=== PATIENT | female | born 1960 | race Caucasian/White ===

== ENCOUNTER 2025-01-04 09:17 | Emergency (ER) | payer MEDICAID, SELFPAY ==
[2025-01-04] VITALS (22 sets, daily range): BP systolic 106–132; BP diastolic 60–87; PULSE 60–77; RESP 16–23; TEMP 36.7–37.1; O2SAT 87–97; BMI 25.0
--- NOTE | 2025-01-04 09:21 | ED_ITS ---
Discharge Plan Disposition Patient Disposition: Xfer [facility] Prescriptions Prescriptions: New buprenorphine-naloxone [Suboxone] 8-2 mg film 1.5 film buccal DAILY 7 Days Qty: 11 0RF Referrals Follow up/Referrals: Provider,Referral, [Primary Care Provider] - See instructions Clinical Impressions Clinical Impression: Opioid use disorder Print Language Print Language: Greek Discharge ED Provider: Joan Andrews HPI General Chief Complaint: Shortness of Breath/Dyspnea Stated Complaint: SOA Time Seen by Provider: 01/04/25 09:22 History of Present Illness HPI narrative: Patient is a 64-year-old with past medical history significant for opioid use disorder COPD, end-stage for later nasal cannula requirement at baseline and schizophrenia who presents to the emergency department for dose of Suboxone. Patient was discharged yesterday from [facility] where she was inpatient psychiatric treatment for 3 weeks on 12 mg of Suboxone daily. She was discharged to [facility] yesterday and was seen by nurse practitioner this morning demanding her Suboxone. Patient has not had Suboxone since discharge from [facility] 2 days ago. Patient says that she is starting to feel little shaky since she has not had her Suboxone today. Denies chest pain shortness of breath cough congestion fever. Patient is on 4 L nasal cannula at her baseline. Related Data Previous Rx's ?Medication ?Instructions ?Recorded buprenorphine 8 mg-naloxone 2 mg 1.5 film buccal DAILY 7 days #11 ea 01/04/25 sublingual film (Suboxone) Allergies Allergy/AdvReac Type Severity Reaction Status Date / Time No Known Allergies Allergy Verified 01/04/25 09:31 [facility] Disclaimer: The information contained in this section may have been updated after the patient was seen, as this information can be updated by other users. Social History Smoking Status: Current every day smoker alcohol intake: never current occupational status: unemployed Travel in the last 8 weeks: None ROS Obtained: Yes All systems reviewed & no additional complaints except as documented Physical Exam General General appearance: alert and in no apparent distress ENT ENT exam: Present normal oropharynx Neck Neck exam: Present normal inspection; Absent tenderness Respiratory Respiratory exam: Present wheezes (Wheezing bilaterally) Cardiovascular Cardiovascular exam: Present regular rate and normal rhythm Abdominal Exam Abdominal exam: Present soft; Absent tenderness Neurological Exam Neurological exam: Present alert and oriented X3 Psychiatric Psychiatric exam: Present agitated Skin Skin exam: Present warm and dry; Absent diaphoresis HEART Score HEART Score HEART Score assessment performed?: No Critical Care Critical Care Time Critical Care Time: No Medical Decision Making Josse Inquiry Pt receiving controlled substance: Yes Josse was queried for this patient: Yes Risks and benefits of using a controlled substance: were discussed with pt by me Vital Signs Vital Signs: 01/04/25 09:20 01/04/25 09:30 01/04/25 10:00 Temperature 98.7 F Temperature Source Oral Pulse Rate 76 71 Pulse Rate [Right Apical] 77 Respiratory Rate 20 23 20 Blood Pressure 120/87 126/71 Blood Pressure [Right Arm] 132/87 Blood Pressure Mean [Right Arm] 102 Blood Pressure Source [Right Arm] Automatic Cuff Blood Pressure Position [Right Arm] Supine 02 Sat by Pulse Oximetry 94 L 95 94 L Oxygen Delivery Method Nasal Cannula Oxygen Flow Rate (LPM) 4 01/04/25 10:30 Temperature Temperature Source Pulse Rate 67 Pulse Rate [Right Apical] Respiratory Rate 19 Blood Pressure 111/64 Blood Pressure [Right Arm] Blood Pressure Mean [Right Arm] Blood Pressure Source [Right Arm] Blood Pressure Position [Right Arm] 02 Sat by Pulse Oximetry 94 L Oxygen Delivery Method Oxygen Flow Rate (LPM) Response Orders (Tests/Meds): ED MEDICATIONS Generic Name Dose Route Start Last Admin Trade Name Freq PRN Reason Stop Dose Admin Buprenorphine/Naloxone 1.5 each 01/04/25 11:47 Buprenorphine/Naloxone 8mg/2mg Odt SL 01/04/25 11:48 ONCE ONE MDM Narrative Medical Decision Narrative: In summary, this 64-year-old female presents to the emergency department today with request for Suboxone. On initial evaluation patient is hemodynamically stable saturating appropriately on baseline 4 L nasal cannula. COWS score 2 notable for anxiety and feeling tremulous without observation. Josse pulled with last prescription for Suboxone written on 125. Patient has been inpatient at [facility] for 3 weeks. Records reviewed from [facility] and confirmed patient was receiving 12 mg of Suboxone daily. Patient was given 1 dose of 12 mg of Suboxone. We had an interactive conversation with Tim. patient has an appointment on 01/08 with a provider that can provide Suboxone refill. Patient given a 1 week prescription for her daily 12 mg of Suboxone until she is able to follow-up with this provider.
--- NOTE | 2025-01-04 09:45 | PC.NURSE ---
Called [facility] for medical records for details of patient's previous admission. Per Dr. Andrews the patient's Josse is negative for suboxone. spoke with Gerry who stated she would fax over the information
--- NOTE | 2025-01-04 10:47 | PC.NURSE ---
Called [facility] back and asked to speak with medical records to see about getting information faxed over on this pt.
--- NOTE | 2025-01-04 11:05 | PC.NURSE ---
received pt pharmacy record from [facility] but not the MD progress notes or discharge summary. Caller Gerry sauceda whop stated she would send over the progress notes and the discharge packet but that the provider summary wasnt completed yet
--- NOTE | 2025-01-04 11:45 | PC.NURSE ---
[facility] sent more pt records including the pt discharge packet which confirmed she was taking the suboxone
--- NOTE | 2025-01-04 12:00 | PC.NURSE ---
pt reports she wears 4L NC at home at all times. pt oxygen turned off at this time for room air sat to evaluate oxygen requirement
[2025-01-04] MEDS: BUPRENORPHINE/NALOXONE 8MG/2MG ODT 1.5 EACH SL (12:24)
--- NOTE | 2025-01-04 12:26 | PC.NURSE ---
called report back to [facility]. They reported someone would be over shortly to pick her up
--- NOTE | 2025-01-04 12:30 | PC.NURSE ---
Pt ambulated from room to outside of ambulance bay. approx 200 feet. pt wanted to smoke but was redirected at this time. pt assted back to room and was noted to be SOB. room air O2 sat is 87% at this time. 4L NC applied and pt recovered to 96%. pt reports she usually wears 4L NC at home
--- NOTE | 2025-01-04 13:30 | PC.NURSE ---
Rosio Ron with care management at bedside
--- NOTE | 2025-01-04 14:07 | SW/DCPLANNER ---
Patient currently resides at [facility]. I did call and spoke w/ Doris at [facility] whom did not have much info regarding patient due to being a new admit yesterday. Doris stated [facility] did not receive medication prescriptions. Per requested documentation from [facility] (discharged yesterday) patient does require home O2. PRN O2 will be set up by Shawnee Sanchez (PCP) at [facility]. Patient will discharge from ED w/ PRN O2 and Suboxone medication. I have updated Doris w/ [facility].
--- NOTE | 2025-01-04 14:14 | PC.NURSE ---
spoke with provider Brandy Sanchez who agreed to write the order for oxygen as needed so pt can return to the facility. Dr. Andrews notified
--- NOTE | 2025-01-04 15:25 | PC.NURSE ---
rounded on pt and 02 sat was 87% at rest laying in the bed and went in and put pt back on 2 liters and 02 sat increased to 94%.
--- NOTE | 2025-01-04 15:30 | PC.NURSE ---
unable to get O2 order from AIDE Sanchez. Dr. Weller wrote order. Case Management aware. required info faxed to [facility]. called [facility] for confirmation. They will bring portable O2 for transport and pick it back up at [place] next week
--- NOTE | 2025-01-04 16:03 | PC.NURSE ---
[facility] delivered portable o2. Called [facility] to notify them that pt ready for d/c now.
--- NOTE | 2025-01-04 16:45 | PC.NURSE ---
Called Tim again to come and get there pt. No answer
--- NOTE | 2025-01-04 16:48 | PC.NURSE ---
[facility] should be arriving any minute to pick this pt up
--- NOTE | 2025-01-04 18:02 | PC.NURSE ---
called lab to check on ETOH results. They stated the result didnt cross over from the analyzer said it would need to be redone and would take about 15 minutes
== END 2025-01-04 16:52 ==
PROVIDERS: Emergency Provider Student in an Organized Health Care Education/Training Program
DX: F11.90 Opioid use, unspecified, uncomplicated (principal); J44.9 Chronic obstructive pulmonary disease, unspecified; F20.9 Schizophrenia, unspecified; R25.1 Tremor, unspecified; Z72.0 Tobacco use
CPT/HCPCS: 99283; J0574

== ENCOUNTER 2025-01-12 14:24 | Emergency (ER) | payer OTHER, SELFPAY ==
[2025-01-12] VITALS (8 sets, daily range): BP systolic 135–184; BP diastolic 72–91; PULSE 65–71; RESP 15–26; TEMP 37.6; O2SAT 88–99; BMI 25.0
--- NOTE | 2025-01-12 14:29 | ECG_ITS ---
APPROVED REPORT Exam: Resting ECG HR:69 bpm ECG Measurements Heart Rate 69 AXES DE 123 P -76 QRSd 89 QRS 87 QT 442 T 84 QTc 461 Conclusion Sinus rhythm T wave inversions 1 and aVL with no reciprocal change Electronically signed by : RICHARDSON WILEY, 01/12/2025 23:06:54
[2025-01-12 14:32] LABS: Coronavirus 19, PCR Not Detected (NotDetected); Influenza A, PCR Not Detected (NotDetected); Influenza B, PCR Not Detected (NotDetected)
--- NOTE | 2025-01-12 14:38 | XR_ITS ---
PROCEDURE INFORMATION: Exam: XR Chest Exam date and time: 01/12/2025 2:50 PM Age: 64 years old Clinical indication: Shortness of breath; Additional info: SOA TECHNIQUE: Imaging protocol: Radiologic exam of the chest. Views: 1 view. COMPARISON: No relevant prior studies available. FINDINGS: Lungs: Right lower lung opacity, concerning for consolidation or atelectasis. Pleural spaces: No pleural effusion or pneumothorax. Heart/Mediastinum: The heart size is normal. Mild aortic atherosclerosis. Bones/joints: No acute fracture. Left humeral orthopedic hardware. Other findings: Dense irregularities along the mid lower neck. IMPRESSION: Right lower lung opacity, concerning for consolidation or atelectasis.
[2025-01-12] MEDS: IPRATROPIUM/ALBUTEROL 3 ML NEB 9 ML IH (14:55)
[2025-01-12] MEDS: METHYLPREDNISOLONE SOD SUCC 125MG VIAL 125 MG IV (14:58)
[2025-01-12 15:03] LABS: Lactate Venous 1.6 mmol/L (0.4-2.0); VBG HCO3 27.6 mmol/L (23-30); VBG Oxygen Saturation 75.8 % (50-70); VBG PH 7.35 mmol/L (7.31-7.41); VBG PO2 42.8 mmol/L (28-40); VBG Total CO2 29.1 mmol/L (23-27)
[2025-01-12 15:05] LABS: Basophils % 0.2 % (0.1-2.0); Eosinophils # 0.1 K/mm3 (0.0-0.4); Eosinophils % 1.4 % (0.1-12.0); Hematocrit 33.3 % (37.0-47.0); Hemoglobin 10.6 g/dL (12.2-16.2); Lymphocytes # 1.5 K/mm3 (0.7-4.5); Lymphocytes % 19.1 % (10-50); Mean Corpuscular HGB Conc 31.8 g/dL (31.8-35.4); Mean Corpuscular Hemoglobin 30.2 pg (27.0-31.2); Mean Corpuscular Volume 94.9 fl (81-99); Mean Platelet Volume 9.3 fl (7.4-10.4); Monocytes # 0.8 K/mm3 (0.1-1.0); Monocytes % 9.3 % (1.7-9.3); Neutrophils # 5.6 K/mm3 (1.8-7.8); Neutrophils % 69.8 % (37.0-80.0); Platelet Count 345 K/mm3 (142-424); Red Blood Count 3.51 M/mm3 (4.20-5.40); Red Cell Distribution Width 15.6 % (11.5-17.5)
[2025-01-12 15:06] LABS: VBG PCO2 50.7 mmol/L (35-51)
[2025-01-12 15:19] LABS: Alanine Aminotransferase 20 U/L (12-78); Albumin Level 3.5 g/dl (3.5-5.0); Alkaline Phosphatase 142 U/L (38-126); Anion Gap 10.9 mEq/L (5-15); Aspartate Amino Transferase 29 U/L (14-36); Bilirubin,Total 0.2 mg/dl (0.2-1.3); Blood Urea Nitrogen 11 mg/dl (7-17); Calcium 8.9 mg/dl (8.4-10.2); Carbon Dioxide 32 mmol/L (22.0-30.0); Chloride 103 mmol/L (98-107); Creatinine Clearance Estimated 63 mL/min (50-200); Estimated Glomerular Filt Rate 84 ml/min (>60); GFR (African American) 102 ML/MIN (>60); Globulin 3.4 g/dL (1.3-3.2); Glucose 109 mg/dl (74-100); Potassium 3.9 mmoL/L (3.5-5.1); Sodium 142 mmol/L (136-145); Total Protein,Serum 6.9 g/dl (6.3-8.2)
[2025-01-12 15:24] LABS: D-Dimer 0.37 ug/mL (0.0-0.5)
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
[2025-01-12 15:33] LABS: Troponin I < 0.01 ng/ml (0.00-0.034)
--- NOTE | 2025-01-12 16:01 | PC.NURSE ---
Per MD no blood cultures needed at this time.
[2025-01-12] MEDS: CEFTRIAXONE SODIUM 2 GM in 0.9 % SODIUM CHLORIDE 100 ML IV (16:05)
[2025-01-12] MEDS: AZITHROMYCIN 500 MG in 0.9 % SODIUM CHLORIDE 250 ML 250 MG IV (16:31)
--- NOTE | 2025-01-12 17:35 | PC.NURSE ---
Tim notified of need to be picked up.
== END 2025-01-12 17:55 | disposition home or self-care (01) ==
PROVIDERS: Emergency Medicine; Emergency Provider Emergency Medicine
DX: J44.1 Chronic obstructive pulmonary disease with (acute) exacerbation (principal); J96.11 Chronic respiratory failure with hypoxia; R05.9 Cough, unspecified; R53.1 Weakness; F11.90 Opioid use, unspecified, uncomplicated; Z72.0 Tobacco use
CPT/HCPCS: 71045; 80053; 82803; 84484; 85025; 85378; 87636; 93005; 96365; 96367; 96374; 96375; 99291; J0456; J0696; J2919; J7050; J7620

== ENCOUNTER 2025-01-14 19:53 | Emergency (ER) | payer OTHER, SELFPAY ==
[2025-01-14] VITALS (8 sets, daily range): BP systolic 118–168; BP diastolic 62–87; PULSE 64–73; RESP 20; TEMP 36.9; O2SAT 86–100; BMI 25.0
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
[2025-01-14 21:19] LABS: Basophils % 0.4 % (0.1-2.0); Eosinophils # 0.2 K/mm3 (0.0-0.4); Eosinophils % 2.8 % (0.1-12.0); Hematocrit 32.6 % (37.0-47.0); Hemoglobin 10.3 g/dL (12.2-16.2); Lymphocytes % 27.3 % (10-50); Mean Corpuscular HGB Conc 31.6 g/dL (31.8-35.4); Mean Corpuscular Hemoglobin 30.1 pg (27.0-31.2); Mean Corpuscular Volume 95.3 fl (81-99); Mean Platelet Volume 9.5 fl (7.4-10.4); Monocytes # 0.6 K/mm3 (0.1-1.0); Neutrophils # 4.5 K/mm3 (1.8-7.8); Neutrophils % 61.4 % (37.0-80.0); Platelet Count 371 K/mm3 (142-424); Red Blood Count 3.42 M/mm3 (4.20-5.40); Red Cell Distribution Width 15.6 % (11.5-17.5); White Blood Count 7.4 K/mm3 (4.8-10.8)
[2025-01-14 21:21] LABS: Microscopic, Urine URINE MICROSCOPIC (MICROSCOPIC)
[2025-01-14 21:25] LABS: Appearance,Urine CLEAR (Clear); Bilirubin,Urine Negative (Negative); Blood, Urine 1+ (Negative); Color,Urine YELLOW (Yellow); Glucose,Urine (UA) Negative (Negative); Ketones,Urine Negative (Negative); Leukocyte Esterase,Urine Negative (Negative); Nitrate,Urine Negative (Negative); PH,Urine 6.5 (5.0-8.5); Protein,Urine Negative (Negative); Urobilinogen,Urine 0.2 EU/dl (0.2)
[2025-01-14 21:29] LABS: Alanine Aminotransferase 19 U/L (12-78); Albumin Level 3.3 g/dl (3.5-5.0); Alkaline Phosphatase 129 U/L (38-126); Anion Gap 7.5 mEq/L (5-15); Aspartate Amino Transferase 37 U/L (14-36); Bilirubin,Total 0.2 mg/dl (0.2-1.3); Blood Urea Nitrogen 14 mg/dl (7-17); Calcium 8.7 mg/dl (8.4-10.2); Carbon Dioxide 33 mmol/L (22.0-30.0); Chloride 102 mmol/L (98-107); Creatinine Clearance Estimated 61 mL/min (50-200); Estimated Glomerular Filt Rate 101 ml/min (>60); GFR (African American) 122 ML/MIN (>60); Globulin 3.3 g/dL (1.3-3.2); Glucose 95 mg/dl (74-100); Potassium 4.5 mmoL/L (3.5-5.1); Sodium 138 mmol/L (136-145); Total Protein,Serum 6.6 g/dl (6.3-8.2)
[2025-01-14 21:32] LABS: Activated Partial Thrombo Time 27.9 seconds (22.8-30.6); INR 1.02 (0.9-1.1); Prothrombin Time 11.4 seconds (10.1-12.5)
[2025-01-14 21:39] LABS: Acetaminophen < 10 ug/ml (10-30); Salicylate < 1.0 mg/dL (2.0-20.0)
[2025-01-14 21:51] LABS: Amphetamine/Metha Screen,Urine Negative ng/ml (<1000)
[2025-01-14 21:52] LABS: Barbiturates Screen,Urine Negative ng/ml (<200); Benzodiazepines Screen,Urine Negative ng/ml (<200)
[2025-01-14 21:53] LABS: Cannabinoid Screen,Urine Negative ng/ml (<50)
[2025-01-14 21:54] LABS: Cocaine Screen,Urine Negative ng/ml (<300); Methadone Screen,Urine Negative ng/ml (<300)
[2025-01-14 21:55] LABS: Opiate Screen,Urine Negative ng/ml (<300)
[2025-01-14 21:56] LABS: Ethyl Alcohol < 10 mg/dl (0-10); Phencyclidine Screen,Urine Negative ng/ml (<25)
--- NOTE | 2025-01-14 22:00 | PC.NURSE ---
Patient requesting warm blanket, along with sandwich and a drink. Patient alert, without complaints. Denies pain.
--- NOTE | 2025-01-14 22:07 | PC.NURSE ---
Spoke with for pt to [facility]. speaking with them at this time
[2025-01-14 22:36] LABS: Bacteria,Urine 1+ /lpf; RBC,Urine 20-50 #/hpf (0-3)
--- NOTE | 2025-01-14 23:03 | PC.NURSE ---
Patient asleep at this time. Respirations even and unlabored.
--- NOTE | 2025-01-14 23:08 | PC.NURSE ---
called dispatch to have PD call the ER for the transfer to [facility]
--- NOTE | 2025-01-14 23:12 | PC.NURSE ---
Report called to LIV Balderas at [facility] at [facility].
--- NOTE | 2025-01-14 23:47 | PC.NURSE ---
[employer] Officer Neema arrived to ED. He states that he cannot transport patient due to patient [facility]. He states that unless ER obtains a signed court order he cannot transport patient. EMS informed by FLORIN Sauceda tech of need for transport.
--- NOTE | 2025-01-14 23:52 | PC.NURSE ---
Dr. Urias at bedside
[2025-01-15] VITALS (8 sets, daily range): BP systolic 104–148; BP diastolic 61–96; PULSE 61–71; RESP 17; TEMP 36.8; O2SAT 90–100
--- NOTE | 2025-01-15 02:29 | PC.NURSE ---
Spoke with [facility] employee to update on patient plan of care. Informed that due to multiple transfers from our EMS system, patient has not been transferred at this time. Informed that TRN will call with update when patient transportation is available.
== END 2025-01-15 05:23 | disposition short-term general hospital (02) ==
PROVIDERS: Emergency Provider Emergency Medicine; PCP Nurse Practitioner Family
DX: R44.0 Auditory hallucinations (principal); R44.1 Visual hallucinations; Z72.0 Tobacco use
CPT/HCPCS: 80053; 80307; 80320; 80329; 81001; 85025; 85610; 85730; 99284

== ENCOUNTER 2025-01-25 18:49 | Emergency (ER) | payer OTHER, SELFPAY ==
[2025-01-25] VITALS (11 sets, daily range): BP systolic 112–146; BP diastolic 62–99; PULSE 63–80; RESP 15–23; TEMP 36.8; O2SAT 87–99; BMI 24.2
--- NOTE | 2025-01-25 18:52 | ECG_ITS ---
APPROVED REPORT Exam: Resting ECG HR:70 bpm ECG Measurements Heart Rate 70 AXES CO 127 P -75 QRSd 84 QRS 84 QT 410 T 79 QTc 431 Conclusion JUNCTIONAL RHYTHM MODERATE ST DEPRESSION [0.05+ mV ST DEPRESSION] No STEMI Electronically signed by : ASPEN CARTER, 01/26/2025 00:14:09
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
--- NOTE | 2025-01-25 19:47 | PC.NURSE ---
ATtempted IV multiple times with no success. IV in left hand flushes no blood return.
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
[2025-01-25] MEDS: MAGNESIUM SULFATE IN WATER 2 GM/50 ML PIGGYBACK IV (20:01)
[2025-01-25] MEDS: KETOROLAC 30MG/ML VIAL 15 MG IV (20:01)
[2025-01-25] MEDS: ACETAMINOPHEN 500MG TAB 1000 MG PO (20:02)
[2025-01-25] MEDS: DEXAMETHASONE 4MG/ML 5ML MDV 10 MG IV (20:03)
[2025-01-25 20:10] LABS: Coronavirus 19, PCR Not Detected (NotDetected); Influenza A, PCR Not Detected (NotDetected); Influenza B, PCR Not Detected (NotDetected)
[2025-01-25] MEDS: IPRATROPIUM/ALBUTEROL 3 ML NEB 9 ML IH (20:13)
[2025-01-25 20:17] LABS: Lactate Venous 1.3 mmol/L (0.4-2.0); VBG Base Excess 6.1 mmol/L (-2.4-2.3); VBG HCO3 30.8 mmol/L (23-30); VBG Oxygen Saturation 96.7 % (50-70); VBG PH 7.41 mmol/L (7.31-7.41); VBG PO2 89.5 mmol/L (28-40); VBG Total CO2 32.4 mmol/L (23-27)
[2025-01-25 20:17] LABS: Basophils % 0.5 % (0.1-2.0); Eosinophils # 0.3 Kmm3 (0.0-0.4); Eosinophils % 3.8 % (0.1-12.0); Hematocrit 31.1 % (37.0-47.0); Lymphocytes # 1.9 K/mm3 (0.7-4.5); Lymphocytes % 28.6 % (10-50); Mean Corpuscular HGB Conc 32.2 g/dL (31.8-35.4); Mean Corpuscular Hemoglobin 31.1 pg (27.0-31.2); Mean Corpuscular Volume 96.6 fl (81-99); Monocytes # 0.5 K/mm3 (0.1-1.0); Monocytes % 8.3 % (1.7-9.3); Neutrophils # 3.8 K/mm3 (1.8-7.8); Neutrophils % 58.6 % (37.0-80.0); Nucleated Red Blood Cells # 0 10^3/uL; Nucleated Red Blood Cells % 0 %; Platelet Count 296 K/mm3 (142-424); Red Blood Count 3.22 M/mm3 (4.20-5.40); Red Cell Distribution Width-SD 49.4 fL; White Blood Count 6.5 K/mm3 (4.8-10.8)
[2025-01-25 20:20] LABS: VBG PCO2 50.2 mmol/L (35-51)
--- NOTE | 2025-01-25 20:20 | PC.NURSE ---
VBG results given to adrian Brenner
[2025-01-25 20:36] LABS: D-Dimer 0.73 ug/mL (0.0-0.5)
[2025-01-25 20:39] LABS: Albumin Level 3.1 g/dl (3.5-5.0); Chloride 107 mmol/L (98-107); Potassium 4.3 mmoL/L (3.5-5.1); Sodium 139 mmol/L (136-145)
[2025-01-25 20:42] LABS: Alanine Aminotransferase 14 U/L (12-78); Albumin/Globulin Ratio 1.1 (1.1-1.8); Alkaline Phosphatase 123 U/L (38-126); Anion Gap 9.3 mEq/L (5-15); Aspartate Amino Transferase 29 U/L (14-36); Bilirubin,Total 0.2 mg/dl (0.2-1.3); Blood Urea Nitrogen 11 mg/dl (7-17); Calcium 8.4 mg/dl (8.4-10.2); Carbon Dioxide 27 mmol/L (22.0-30.0); Creatinine Clearance Estimated 61 mL/min (50-200); Estimated Glomerular Filt Rate 124 ml/min (>60); GFR (African American) 150 ML/MIN (>60); Globulin 2.9 g/dL (1.3-3.2); Glucose 97 mg/dl (74-100); Magnesium 1.7 mg/dl (1.6-2.3); NT Pro Brain Natriuretic Pep. 134 pg/mL (0-125)
[2025-01-25 20:54] LABS: Troponin I < 0.01 ng/ml (0.00-0.034)
--- NOTE | 2025-01-25 21:09 | PC.NURSE ---
Pt to xray via wheelchair
--- NOTE | 2025-01-25 21:18 | PC.NURSE ---
Pt back from xray
[2025-01-25 21:22] LABS: Microscopic, Urine URINE MICROSCOPIC (MICROSCOPIC)
[2025-01-25 21:25] LABS: Appearance,Urine CLEAR (Clear); Bilirubin,Urine Negative (Negative); Blood, Urine 1+ (Negative); Color,Urine YELLOW (Yellow); Glucose,Urine (UA) Negative (Negative); Ketones,Urine TRACE (Negative); Leukocyte Esterase,Urine TRACE (Negative); Nitrate,Urine Negative (Negative); PH,Urine 6.5 (5.0-8.5); Protein,Urine Negative (Negative); Specific Gravity, Urine 1.025 (1.005-1.030); Urobilinogen,Urine 0.2 EU/dl (0.2)
[2025-01-25 21:34] LABS: Hepatitis C Ab Qual. W/ RFX REACTIVE (Negative)
[2025-01-25 21:35] LABS: Amphetamine/Metha Screen,Urine Negative ng/ml (<1000)
[2025-01-25 21:36] LABS: Barbiturates Screen,Urine Negative ng/ml (<200)
--- NOTE | 2025-01-25 21:36 | PC.NURSE ---
[facility] is sending transportation from [facility] to take patient back to [facility].
[2025-01-25 21:37] LABS: Benzodiazepines Screen,Urine Negative ng/ml (<200); Cannabinoid Screen,Urine Negative ng/ml (<50)
--- NOTE | 2025-01-25 21:37 | PC.NURSE ---
Tim notified of patient's discharge
[2025-01-25 21:38] LABS: Cocaine Screen,Urine Negative ng/ml (<300); Methadone Screen,Urine Negative ng/ml (<300)
[2025-01-25 21:39] LABS: Bacteria,Urine 1+ /lpf; Opiate Screen,Urine Negative ng/ml (<300)
[2025-01-25 21:40] LABS: Phencyclidine Screen,Urine Negative ng/ml (<25)
--- NOTE | 2025-01-25 21:52 | PC.NURSE ---
IV removed; Catheter tip intact; bleeding controlled.
[2025-01-25 21:57] LABS: HIV Combo NEGATIVE (Negative)
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
--- NOTE | 2025-01-25 22:08 | PC.NURSE ---
Pt refuses to leave with attendant from [facility].
--- NOTE | 2025-01-25 22:34 | PC.NURSE ---
[facility] contacted regarding transfer
--- NOTE | 2025-01-25 22:44 | PC.NURSE ---
Pt sleeping when undisturbed
--- NOTE | 2025-01-25 23:41 | PC.NURSE ---
Report called to Courtney PECK at [facility]. Pt transported to [facility] via EMS
--- NOTE | 2025-01-25 23:50 | PC.NURSE ---
Pt awaiting transport
[2025-01-26] VITALS: BP 121/74; PULSE 59; RESP 14; O2SAT 98
== END 2025-01-26 00:40 | disposition short-term general hospital (02) ==
PROVIDERS: Physician Assistant; Emergency Provider Emergency Medicine
DX: R07.89 Other chest pain (principal); J44.9 Chronic obstructive pulmonary disease, unspecified; F22 Delusional disorders; Z11.59 Encounter for screening for other viral diseases; Z11.4 Encounter for screening for human immunodeficiency virus [HIV]
CPT/HCPCS: 71046; 80053; 80307; 81001; 82803; 83735; 83880; 84484; 85025; 85378; 86803; 87086; 87389; 87522; 87636; 93005; 96365; 96375; 99291; J1100; J1885; J3475